=== PATIENT | female | born 1980 | race Caucasian/White ===

== ENCOUNTER 2017-04-06 15:24 | Emergency (ER) | payer MEDICAID ==
[~2017-04-06] VITALS: Ht 165.1 cm; Wt 85.0 kg
[~2017-04-06 15:24] MED LIST: METF850T
[2017-04-06 15:39] VITALS: Ht 165.1 cm; Wt 85.0 kg
[2017-04-06 18:30] LABS: URINE BLOOD (Dip) POC Trace-lysed (NEGATIVE)
--- NOTE | 2017-04-06 18:41 | RADRPT ---
PROCEDURE: US OB. CLINICAL INDICATION: Hyperglycemia, pain, . TECHNIQUE: Multiple sonographic images of the pelvis were obtained. Transabdominal and transvagin al views of the pelvis are available for review. The images were reviewed on a PACS workstation. COMPARISON: No prior studies are available for comparison. FINDINGS: The uterus measures 9.8 x 6.7 x 7.2 cm. There is an intrauterine gestational sac, but no pole is identified. The mean gestational sac diameter measures 1.49 cm, corresponding to a 2-myzv-9-day p regnancy. No subchorionic hemorrhage is identified. The right ovary is not visualized. The left ovary measures 3.1 x 2.8 x 2.8 cm. There is a 2.6 cm si mple left ovarian cyst, normal for age. Blood flow is demonstrated to the left ovary. The adnexa a re unremarkable. There is no free fluid. IMPRESSION: 1. There is a 2-xcdp-0-day intrauterine gestational sac, but no pole is identified. This is nonspecific and continued follow-up is recommended. 2. 2.6 cm simple left ovarian cyst. The right ovary is not visualized. RPTAT: HTAR .Florentin Kern MD, MD Date Time Electronically viewed and signed by .Florentin Kern MD, on 04/06/2017 18:41 .R/
[2017-04-06] MEDS ORDERED: METO10TA92 PO (19:40)
[2017-04-06] MEDS ORDERED: PRENAT PO (19:40)
[2017-04-06] MEDS ORDERED: INSULIN LISPRO 100 UNIT/ML VIAL SC STA (19:40)
--- NOTE | 2017-04-06 20:10 | ERD ---
ER Documentation Chief Complaint Date/Time DATE: 04/06/17 TIME: 20:08 Chief Complaint diarrhea x 5 days; ap; 3 months ; HPI This 36-year-old female presents with watery diarrhea for last 5 days here. She is possibly 3 months by dates. She has a history of diabetes but is not taking her medication due to her state. She is yet to obtain care. She has previous deliveries here by Dr. Urbano.She denies vaginal bleeding or abdominal pain or fevers. She has nausea but no vomiting. She denies foreign travel or suspect food or blood or mucus in the diarrhea. ROS All systems reviewed and are negative except as per history of present illness. Medications Home Meds Active Scripts Multivit/Min/Fol Ac/Iron/Pren* ( S*) 1 Tab Tab, 1 TAB PO DAILY, #90 TAB Prov:AVRIL REVELES MD 04/06/17 Metoclopramide* (Reglan*) 10 Mg Tablet, 10 MG PO Q6 Y for NAUSEA AND/OR VOMITING , #15 TAB Prov:VARIL REVELES MD 04/06/17 Reported Medications Metformin Hcl* (Metformin Hcl*) 850 Mg Tablet 07/14/10 Allergies Allergies: Coded Allergies: No Known Allergy (Verified , 08/25/11) PMhx/Soc Medical and Surgical Hx: pt denies Medical Hx History of Surgery: Yes ( X1) Anesthesia Reaction: No Hx Neurological Disorder: No Hx Respiratory Disorders: No Hx Cardiac Disorders: No Hx Psychiatric Problems: No Hx Miscellaneous Medical Probl: Yes (DM) Hx Alcohol Use: No Hx Substance Use: No Hx Tobacco Use: No Smoking Status: Never smoker Physical Exam Vitals Vital Signs Date Time Temp Pulse Resp B/P Pulse Ox O2 Delivery O2 Flow Rate FiO2 04/06/17 15:39 97.8 98 18 124/77 99 Physical Exam Const: [], Kml-fyx-mjnnigbti. Head: Atraumatic Eyes: Normal Conjunctiva ENT: Normal External Ears, Nose and Mouth. Neck: Full range of motion..~ No meningismus. Resp: Clear to auscultation bilaterally Cardio: Regular rate and rhythm, no murmurs Abd: Soft, non tender, non distended. Normal bowel sounds Skin: No petechiae or rashes Back: No midline or flank tenderness Ext: No cyanosis, or edema Neur: Awake and alert Psych: Normal Mood and Affect Results 24 hrs Laboratory Tests Test 04/06/17 18:36 04/06/17 18:42 04/06/17 20:11 Bedside Urine pH (LAB) 5.5 Bedside Urine Protein (LAB) Negative Bedside Urine Glucose (UA) 0.50% Bedside Urine Ketones (LAB) Negative Bedside Urine Blood Trace-lysed Bedside Urine Nitrite (LAB) Negative Bedside Urine Leukocyte Esterase (L Negative Bedside Glucose 219mg/dL 221mg/dL Current Medications Medications (Trade) Dose Ordered Sig/Robert Route PRN Reason Start Time Stop Time Status Last Admin Dose Admin Insulin Human Lispro (Humalog) 4 unit ONCE STAT SC 04/06/17 19:40 04/06/17 19:42 DC 04/06/17 20:14 Procedures/MDM Accu-Chek is 219. Patient was given Humalog 4 units subcutaneously. Pelvic ultrasound shows approximately 6 week intrauterine gestational sac and pole. There is no heart tone visible possibly due to early stage of . There is no evidence of ectopic however ovarian torsion. Patient was stable throughout ED course. Patient will referred to OB for follow -up through the local provider resources. Patient is advised to drink clear fluids at home and monitor blood sugar and obtain care for high risk estimation possible. Accu-Chek 181 prior to discharge patient has no signs or symptoms to suggest ketoacidosis. She should return for vaginal bleeding, fevers, vomiting, pain, new worsening symptoms. Suspect viral diarrhea will withhold treatment and allow a few more days for viral illness to resolve. The patient was stable with no new complaints during the ER course. Clinically, there is no current evidence to suggest meningitis, sepsis, acute abdomen, pneumonia, acute coronary syndrome, pulmonary embolism, or any other emergent condition appearing to require further evaluation or hospitalization. The patient should certainly return for any new or worsening symptoms per the aftercare instructions. They should otherwise follow-up with her primary care doctor for reevaluation this week. Departure Diagnosis: Primary Impression: Weeks of gestation: unspecified Qualified Code: Z34.90 - , unspecified gestational age Additional Impression: Diarrhea Diarrhea type: unspecified type Qualified Code: R19.7 - Diarrhea, unspecified type Condition: Stable Patient Instructions: Self-Care for Vomiting and Diarrhea, DIABETES, General Info, , Established, Normal Symptoms Referrals: [employer] [place] [id number] [facility] [address] [place] [address] OFFICE FAX , [facility] [address] [place] [address] [address]. TAYLOR, KEARNEY [address] [place] [address] DR JASSO, [facility] [address] [facility], [address], [facility] [address] [address] [facility] [address] [facility], [place] [address] [facility] [address] [place] [address] [facility] [id number] - DR YOUNG, ROSALINDA [address], [place] [address] [place] [address] [facility], [place] [address] DR CONSTANTINO, FARID [address] [place] [address] Additional Instructions: Va al mathew doctor/ specialista para mas evaluacon en el proximo semana. posiblemente necesita autorizado de mathew doctor primario para specialista. Regresa para fiebre, o mas o nueva simptomas. AVRIL REVELES MD Apr 06, 2017 20:10
[2017-04-06 21:47] VITALS: BP 118/77; PULSE 72; RESP 18; TEMP 98.3
== END 2017-04-06 21:48 | disposition home or self-care (01) ==
LOC: FTE 15:24
DX: O99.89 Other specified diseases and conditions complicating pregnancy, childbirth and the puerperium (principal); R19.7 Diarrhea, unspecified; O24.111 Pre-existing type 2 diabetes mellitus, in pregnancy, first trimester; E11.9 Type 2 diabetes mellitus without complications; Z3A.00 Weeks of gestation of pregnancy not specified; Z79.84 Long term (current) use of oral hypoglycemic drugs
CPT/HCPCS: 76801; 76817; 81003; 82962; 96372; J1815; Z7502